=== PATIENT | male | born 1995 | race Caucasian/White ===

== ENCOUNTER 2016-09-06 19:38 | Emergency (ER) | payer OTHER ==
[~2016-09-06] VITALS: Ht 177.8 cm; Wt 84.8 kg
[2016-09-06] MEDS ORDERED: MECLIZINE 25 MG TABLET PO ONE (21:00)
[2016-09-06] MEDS ORDERED: KETOROLAC 60 MG/2 ML VIAL (J1885) IM ONE (21:00)
[2016-09-06] MEDS ORDERED: MAGIC MOUTHWASH SUSPENSION BTL SS ONE (21:00)
[2016-09-06] MEDS ORDERED: ONDANSETRON 4 MG ORAL DISINTEGRATING TAB (S0181) PO ONE (21:00)
[2016-09-06] MEDS ORDERED: MECL-86 PO (22:07)
[2016-09-06] MEDS ORDERED: AMOX875T PO (22:07)
[2016-09-06] MEDS ORDERED: ZOFR4TAB3 PO (22:07)
[2016-09-06 22:10] VITALS: BP 123/59
== END 2016-09-06 22:15 | disposition home or self-care (01) ==
LOC: M ED 21:33
DX: H66.92 Otitis media, unspecified, left ear (principal); R11.2 Nausea with vomiting, unspecified; R04.0 Epistaxis
CPT/HCPCS: 96372; 99282; J1885